=== PATIENT | male | born 1940 | race Caucasian/White ===

== ENCOUNTER 2021-09-11 09:18 | Emergency (ER) | payer MEDICARE ==
[~2021-09-11] VITALS: Ht 177.8 cm; Wt 90.7 kg
[2021-09-11] MEDS ORDERED: SODIUM CHLORIDE 0.9% 1000ML 1,000 ML IV STA (09:41)
[2021-09-11] MEDS ORDERED: CASODEX50 MG (09:43)
[2021-09-11] MEDS ORDERED: SODIUM CHLORIDE 0.9% 1000ML 1,000 ML ONE (10:18)
[2021-09-11] MEDS ORDERED: CEFTRIAXONE 1 GM VIAL ONE (11:09)
[2021-09-11] MEDS ORDERED: SODIUM CHLORIDE 0.9% 50ML 50 ML ONE (11:09)
[2021-09-11] MEDS ORDERED: CEFDINIR300 MG PO (11:09)
[2021-09-11] MEDS ORDERED: CEFTRIAXONE 1 GM in SODIUM CHLORIDE 0.9% 50ML 50 ML IV ONE (11:30)
== END 2021-09-11 11:37 | disposition home or self-care (01) ==
LOC: FSED 09:40
DX: R41.82 Altered mental status, unspecified (principal); N39.0 Urinary tract infection, site not specified; E86.0 Dehydration; I10 Essential (primary) hypertension; E11.9 Type 2 diabetes mellitus without complications; Z20.822 Contact with and (suspected) exposure to COVID-19; Z85.46 Personal history of malignant neoplasm of prostate
CPT/HCPCS: 70450; 71046; 74018; 80053; 81003; 82553; 83880; 84484; 85025; 93005; 96374; 99284; J0696; J7030; U0002